=== PATIENT | male | born 1985 | race Caucasian/White ===

== ENCOUNTER → 2021-04-09 | Outpatient (CLI) | payer SELFPAY ==
--- NOTE | 2021-04-09 15:41 | Diagnostic Imaging Report ---
INDICATION: Elbow pain, status post injury. COMPARISON: None FINDINGS: 3 radiographic views of the left elbow were obtained. There is acute intra-articular fracture involving the lateral margins of the radial head. There is minimal displacement of the fracture fragments. Included portions of the distal humerus and proximal ulna are intact. Joint spaces are maintained. No unexpected radiopaque foreign bodies are seen. IMPRESSION: 1. Acute radial head fracture, as described above. Dictated by: Dictated on workstation # [id number]
--- NOTE | 2021-04-09 15:44 | Diagnostic Imaging Report ---
INDICATION: Wrist pain. Trauma. Injury. COMPARISON: None. FINDINGS: Multiple radiographic views of the left wrist demonstrate no acute fracture or dislocation. There are no focal osseous lesions. No avascular necrosis is seen. The visualized soft tissue structures are unremarkable. The pronator fat pad is not displaced. There are no radio opaque foreign bodies. IMPRESSION: 1. No acute fracture or dislocation in the left wrist. Dictated by: Dictated on workstation # [id number]
== END ==
LOC: RAD FS 14:15
PROVIDERS: ATTEND Nurse Practitioner
DX: S52.122A Displaced fracture of head of left radius, initial encounter for closed fracture (principal); X58.XXXA Exposure to other specified factors, initial encounter; M25.532 Pain in left wrist
CPT/HCPCS: 73080; 73110